=== PATIENT | female | born 1975 | race Hispanic/Latino ===

== ENCOUNTER 2019-06-05 14:48 | Outpatient (RCR) | payer OTHER, SELFPAY ==
[2019-06-05 15:01] VITALS: BMI 26.2
[2019-06-05 15:58] VITALS: BMI 26.2
== END 2019-09-03 23:59 | disposition home or self-care (01) ==
LOC: ANHDMC 14:48
PROVIDERS: Visit Provider Internal Medicine
DX: E11.65 Type 2 diabetes mellitus with hyperglycemia (principal); Z71.3 Dietary counseling and surveillance
CPT/HCPCS: 97802

== ENCOUNTER 2021-02-06 09:40 | Outpatient (CLI) | payer OTHER, SELFPAY ==
[2021-02-06 10:27] LABS: Hematocrit 41.4 % (37.0-47.0); Hemoglobin 14.1 g/dL (12.0-15.0); Mean Corpuscular HGB Conc 34.1 g/dl (32-36); Mean Corpuscular Hemoglobin 29.1 pg (26-34); Mean Corpuscular Volume 85.5 fl (80-100); Mean Platelet Volume 10.8 fl (7.4-10.4); Platelet Count Result 243 k/mm3 (150-375); Red Blood Count 4.84 M/mm3 (4.2-5.4); Red Cell Distribution Width 12.4 % (11.5-14.5); White Blood Count 6.3 K/mm3 (4.5-10.0)
[2021-02-06 11:17] LABS: HIV 1/2 Ab P24 Ag Result Negative (Negative)
[2021-02-06 11:28] LABS: Hepatitis B Surface Antigen Negative (Negative)
[2021-02-06 11:46] LABS: Hepatitis C Virus Antibody Negative (Negative)
[2021-02-06 12:02] LABS: Rapid Plasma Reagin Non-Reactive (NonReactive)
== END 2021-02-06 09:41 | disposition home or self-care (01) ==
LOC: ANHLAB 09:42
PROVIDERS: PCP Internal Medicine; Visit Provider Obstetrics & Gynecology
DX: Z11.3 Encounter for screening for infections with a predominantly sexual mode of transmission (principal); N92.0 Excessive and frequent menstruation with regular cycle
CPT/HCPCS: 36415; 84443; 85027; 86592; 86703; 86803; 87340; G0432

== ENCOUNTER 2021-07-20 01:29 | Day surgery (SDC) | payer OTHER, SELFPAY ==
[2021-07-13 15:28] VITALS: BMI 26.4
--- NOTE | 2021-07-13 15:49 | PC.NURSE ---
Addendum entered by April Gregory RN 07/14/21 07:41: PLEASE TAKE YOUR USUAL DOSE OF INSULIN THE EVENING BEFORE SURGERY, NOT HALF THE DOSE. (PER ANESTHESIA GUIDELINES.) Original Note: Report to the Outpatient Waiting Room, entrance under the green pavilion located off [facility], at time _10:00_ on date _07/20/21 . OR Time: _12:00 . WE WILL NOTIFY YOU ON Tuesday07/17/21 IF THERE IS ANY CHANGE IN SURGERY TIME - You and your visitor will be asked a series of questions to screen for COVID 19 for your protection. - A mask is required within the hospital. Preoperative COVID Testing Requirements: No COVID Test needed if: (proof is required; if not received patient will have Rapid Test prior to entry) NO COVID TEST REQUIRED! - Patient has received COVID Vaccine at least 14 days prior to procedure date or - Patient has positive COVID test result within last 90 days of surgery date. COVID Test needed if above criteria is not met If not COVID vaccinated a COVID test must be conducted within 72 hours of surgery and patient is asked to isolate self from time of testing until procedure. You will go to the [employer] [facility] for your COVID testing. The [facility] site is located at the corner of [address] [facility]. You will only be called if COVID results are positive and your surgeon may reschedule your elective surgery date. Patients may have clear liquids (water, carbonated beverages, clear teas, apple juice) until 3 hours prior to surgery with a maximum of 20 ounces. YOU MAY HAVE CLEAR LIQUIDS UNTIL 9:00 AM ON THE MORNING OF SURGERY - No food from midnight until time of surgery - Infants may have breast milk until 4 hours before surgery, formula 6 hours prior to surgery. - Children will be allowed to drink immediately following surgery. If applicable, please bring a bottle or sippy cup to assist with drinking. Juice, water, soda, and popsicles are readily available. For infants on formula, please bring formula the day of surgery. Pacifiers are allowed. Take the following medications with a SIP of water the morning of surgery: _NONE TAKE ONLY 1/2 OF YOUR NORMAL EVENING INSULIN DOSE (11 UNITS) ON TUESDAY NIGHT 07/19/21 Medications to discontinue per physician ____N/A Date to take last dose____N/A Please no make-up, nail yakut, hairspray, perfume, deodorant, or body powder the day of surgery. No jewelry (including any body piercings) or valuables the day of surgery, leave them at home. Please take a shower or bath the night before, or the morning of, surgery with an antibacterial soap. Wear comfortable, loose fitting clothing. Children are encouraged to wear pajamas. - Jewelry must be removed prior to entering the operating room. Rings and piercings that are not removed may be cut off. - The hospital will not accept responsibility for valuables. - Please leave all valuables, including medications, at home the day of surgery. If you are going home after surgery, a licensed lease purchase driver must drive you home. - NO public transportation without another adult. - We recommend that an adult stay with you for 24 hours following discharge. - We also recommend that you do not drive, make important decision, drink alcoholic beverages, or take any drugs that were not prescribed by your health care provider for at least 24 hours after your discharge time. For Pediatric surgeries, we recommend two adults accompany the child home (only one inside the building at this time). One visitor will be allowed to accompany the patient into the hospital. Patients visitor will be instructed to remain with patient at all times or leave the building. We will allow the visitor to come back to the postoperative area when patient is ready. Follow any additional instructions given to you from your surgeon. Telephone instructions given to __RENNY
--- NOTE | 2021-07-16 15:44 | PM.IMHP ---
H&P: HPI History of Present Illness Date/Time: 07/16/21 15:44 Periods Q3 weeks lasting 2 weeks, not responsive to progestin only pills. Chief Complaint: menorrhagia Review of Systems Review of Systems: All systems reviewed & are unremarkable except as noted in HPI and below PMFSH Past Medical History Medical History Diabetes mellitus type 2 Uterine polyp Surgical History Surgical History History of colposcopy 2017 History of dilation and curettage 2019 Family History Family History Father Diabetes mellitus Hypertension Mother Hypertension Diabetes mellitus Social History Social History Smoking status: Never smoker Second hand tobacco smoke exposure: No Alcohol intake: never Substance use: never Substance use type: does not use Spiritual care concerns: No Meds Home Medications and Allergies Home Medications Medication Instructions Recorded Confirmed Type insulin glargine 100 unit/mL (3 22 unit SUBCUT QPM ml 12/26/20 07/13/21 History mL) subcutaneous pen metformin 500 mg tablet 500 mg PO BID 12/26/20 07/13/21 History norethindrone (contraceptive) 0.35 See Rx Instructions .ROUTE 06/15/21 07/13/21 Rx mg tablet .COMPLEX #84 tablet Allergies Allergy/AdvReac Type Severity Reaction Status Date / Time No Known Allergies Allergy Verified 06/30/21 09:19 Exam Const: General: healthy appearing, no acute distress, alert and awake Resp: Auscultation: clear to auscultation bilaterally Cardio: Rate: regular rate Rhythm: regular rhythm GI: Inspection: non-distended GI Palp: Yes Soft to palpation and No Tenderness to palpation present (GI) : Bimanual exam- vagina & uterus: normal bimanual exam, uterine size normal, uterine mobility normal, non-tender and soft Bimanual Exam- Adnexa, other: normal adnexae, no masses and No adnexal tenderness Extrem: General: no pedal edema and no calf tenderness Psych: Mental Status: mental status grossly normal Assessment and Plan Assessment and plan (1) Menorrhagia: Code(s): N92.0 - Excessive and frequent menstruation with regular cycle Status: Acute Assessment and Plan: She opted and signed consent for D&C, hysteroscopy, and endometrial ablation after risks, benefits, complications, and alternatives discussed. She expressed understanding and wishes to proceed
--- NOTE | 2021-07-18 13:03 | P.PNAN_ITS ---
Anes - Initial Pre Proc Eval Procedure: Operation Date: 07/20/21 12:00 Proposed Procedures p Hysteroscopy Dilation and Curettage Endometrial Ablation with Tamara - Christine Luu MD Date/Time: 07/18/21 13:03 Surgeon: Christine Luu MD Pre Op Diagnosis: menorrhagia Patient Data Age: 45 Gender: F Height: 1.63 m Weight: 70 kg Allergies Allergy/AdvReac Type Severity Reaction Status Date / Time No Known Allergies Allergy Verified 07/20/21 09:57 Home Medications Medication Instructions Recorded Confirmed Type insulin glargine 100 unit/mL (3 22 unit SUBCUT QPM ml 12/26/20 07/20/21 History mL) subcutaneous pen metformin 500 mg tablet 500 mg PO BID 12/26/20 07/20/21 History norethindrone (contraceptive) 0.35 See Rx Instructions .ROUTE 06/15/21 07/20/21 Rx mg tablet .COMPLEX #84 tablet Patient hx anesthesia problems: none Family hx anesthesia problems: none Results Review: All pre-operative results and documents have been reviewed as part of the pre-operative evaluation. FOR[facility]LY [facility] Past Medical History Medical History Diabetes mellitus type 2 Uterine polyp Surgical History Surgical History History of colposcopy 2017 History of dilation and curettage 2019 Family History Family History Father Diabetes mellitus Hypertension Mother Hypertension Diabetes mellitus Social History Social History Smoking status: Never smoker Second hand tobacco smoke exposure: No Alcohol intake: never Substance use: never Substance use type: does not use Living arrangements: with family Spiritual care concerns: No Anes - Eval Final PreProcedure Day of Procedure 07/18/21 13:03 Patient weight: overweight Heart: regular rate and rhythm Lungs: clear to auscultation and normal air movement Airway: Mallampati scale class II Neurological: alert and oriented Last oral intake: >/= 8 hours ASA classification: II Emergent: no Anesthetic plan: proceed Anesthesia type and monitoring: general GIVS and standard monitoring Results Review: All pre-operative results and documents have been reviewed as part of the pre-operative evaluation. Informed Consent: The patient's anesthetic plan and its attendant risks and benefits were discussed with the patient/family/POA. Questions were solicited and answers provided to the satisfaction of the patient/family/POA.
[2021-07-20] MEDS: LACTATED RINGERS 1,000 ML 30 ML IV CONT (10:15)
[2021-07-20] MEDS: ACETAMINOPHEN 500 MG TABLET 1000 MG PO (10:15)
[2021-07-20 10:20] VITALS: BP 103/67; PULSE 76; RESP 16; TEMP 36.4; O2SAT 100
--- NOTE | 2021-07-20 11:13 | WPDHPUPDATE1 ---
History and Physical Update Update Date/Time: 07/20/21 11:13 History and Physical has been reviewed, including an updated exam of the patient. There are NO changes in the patient's condition. Risks, benefits, and alternatives have been discussed and questions answered. Patient agrees to proceed with procedure.
[2021-07-20 12:04] LABS: Glucose Point of Care 280 mg/dl (65-105)
[2021-07-20] MEDS: KETOROLAC 30 MG/ML VIAL (*BKC) IV PUSH (12:34)
--- NOTE | 2021-07-20 12:38 | SUR.OPER ---
EBL: 25cc
[2021-07-20 12:46] VITALS: BP 111/57; PULSE 77; RESP 20; O2SAT 97
--- NOTE | 2021-07-20 12:46 | W.PM.PROC2 ---
Procedure Note - Detailed Date of Procedure 07/20/21 Pre-op Diagnosis menorrhagia Post-op Diagnosis Same Procedure Performed D&C, hysteroscopy, Tamara ablation Surgeon Christine Luu MD Anesthesia MAC Indications Heavy periods not responsive to POP Findings normal endometrial cavity Description of Procedure She was taken to the operating room where she was sedated and placed in the dorsal lithotomy position. Speculum was placed in the vagina. Marcaine was injected as a paracervical block. The anterior lip of the cervix was grasped with a single-tooth tenaculum. The uterus sounded to 9 cm. The cervix was dilated to allow passage of the hysteroscope, which revealed an entirely normal endometrial cavity with both tubal ostia identified. A sharp curettage was performed and the curettings sent for pathologic evaluation. A 8. Hegar dilator was used to measure the endocervical canal at 3.5 cm, yielding entire cavity length of 5.5 cm. The minor device was introduced. The cavity assessment passed on the 1st attempt. The cycle ran for 2 minutes. The whenever device was removed. A 2nd look was taken with the hysteroscope. An excellent appearing ablation was noted. The hysteroscope was removed. The tenaculum was removed. Both tenaculum sites were bleeding slightly. Pressure was held with ring forceps and Allis clamp until excellent hemostasis was assured. All instruments were removed from the vagina. She tolerated the procedure well. Sponge, lap, and instrument counts were correct x2. She was taken to the recovery room in stable condition. Estimated Blood Loss 25 Drains No Packing No Pathology Yes Complications No immediate complications Condition Stable Disposition PACU
[2021-07-20 13:02] LABS: Glucose Point of Care 252 mg/dl (65-105)
[2021-07-20 13:15] VITALS: BP 122/61; PULSE 55; RESP 20
--- NOTE | 2021-07-20 13:25 | SUR.PHASEII ---
[id number] - dr. dhillon called about accucheck 252. no orders received
[2021-07-20 13:45] VITALS: BP 112/72; PULSE 60; RESP 20
[2021-07-20 14:15] VITALS: BP 109/59; PULSE 73; RESP 20
== END 2021-07-20 14:25 | disposition home or self-care (01) ==
PROVIDERS: PCP Internal Medicine; Visit Provider Obstetrics & Gynecology
PROC: 0U5B8ZZ Destruction of Endometrium, Via Natural or Artificial Opening Endoscopic (ICD-10-PCS; CPT 58563; principal; 2021-07-20 12:00)
DX: N92.0 Excessive and frequent menstruation with regular cycle (principal); Z79.84 Long term (current) use of oral hypoglycemic drugs; Z79.4 Long term (current) use of insulin; E11.9 Type 2 diabetes mellitus without complications
CPT/HCPCS: 58563; 82948; 88305; A9270; J1100; J1885; J2250; J2405; J2704; J3010; J7030; J7120